=== PATIENT | male | born 1980 ===

== ENCOUNTER 2016-08-05 15:50 | Emergency (ER) | payer BC ==
[2016-08-05 16:14] VITALS: BP 138/72
--- NOTE | 2016-08-05 17:08 | UC ---
Throat Pain/Nasal Agapito HPI - HPI Summary HPI Summary: complaint of left ear pain intermittent headaches mild nasal congestion, intermittent scratchy throats TMJ has been bothering him recently denies fever and cough taking some advil with some relief left leg pain that starts 2 months ago started in the back of his thigh that feels itchy lateral side of his thigh gets painful with movement and driving has active job with lots of walking feels like a deep bruise that won't go away dry rash on his legs sometimes' sees Dr Janis [place] take s advil with relief - History of Current Complaint Chief Complaint: UCLowerExtremity Stated Complaint: LEFT LEG COMPLAINT/SORE THROAT EARS Time Seen by Provider: 08/05/16 17:01 Hx Obtained From: Patient - Allergies/Home Medications Allergies/Adverse Reactions: Allergies Allergy/AdvReac Type Severity Reaction Status Date / Time No Known Allergies Allergy Verified 08/05/16 16:15 PMH/Surg Hx/FS Hx/Imm Hx Previously Healthy: Yes - Surgical History Surgical History: Yes Surgery Procedure, Year, and Place: Left ACL repair - Family History Known Family History: Negative: Cardiac Disease, Hypertension, Diabetes - Social History Occupation: Employed Full-time Lives: With Family Alcohol Use: Weekly Substance Use Type: None Smoking Status (MU): Current Every Day Smoker Type: Smokeless Tobacco Review of Systems Constitutional: Negative Skin: Rash Eyes: Negative ENT: Dental Pain, Ear Ache Respiratory: Negative Cardiovascular: Negative Gastrointestinal: Negative Genitourinary: Negative Motor: Negative Neurovascular: Negative Musculoskeletal: Other: - right leg pain Neurological: Negative Psychological: Negative All Other Systems Reviewed And Are Negative: Yes Physical Exam Triage Information Reviewed: Yes Appearance: No Pain Distress, Well-Nourished Vital Signs: Initial Vital Signs Temp 98.9 F 08/05/16 16:08 Pulse 66 08/05/16 16:08 Resp 16 08/05/16 16:08 BP 138/72 08/05/16 16:08 Pulse Ox 98 08/05/16 16:08 Vital Signs Reviewed: Yes Eyes: Positive: Conjunctiva Clear ENT: Positive: Pharynx normal, TMs normal. Negative: Nasal congestion, Tonsillar swelling, Tonsillar exudate Dental: Positive: Other: - no abscesses or sweeling, no tenderness throughout jaw Neck: Positive: No Lymphadenopathy Respiratory: Positive: Lungs clear, Normal breath sounds, No respiratory distress, No accessory muscle use Cardiovascular: Positive: RRR, No Murmur, Pulses Normal, Brisk Capillary Refill Abdomen Description: Positive: Nontender, Soft Bowel Sounds: Positive: Present Musculoskeletal: Positive: Other: - RLE- non tender throughout musculature, no ecchymosis or rash Neurological: Positive: Alert Psychological Exam: Normal Skin Exam: Normal Throat Pain/Nasal Course/Dx - Course Course Of Treatment: exam completed. no s/s of infection in ears, mouth, dental , most likely ear pain referred from TMJ. leg painappears to be from overuse of muscles -will start flexeril for both issues and have him followup with primary care provider. - Differential Dx/Diagnosis Provider Diagnoses: TMJ, right leg pain Discharge - Discharge Plan Condition: Stable Disposition: HOME Prescriptions: Cyclobenzaprine TAB* [Flexeril 10 MG TAB*] 10 mg PO BEDTIME #10 tab Patient Education Materials: Temporomandibular Disorder (ED), Muscle Strain (ED ) Referrals: Non Staff,Doctor [Medical Doctor] - Marshall Bruce MD [Primary Care Provider] - Additional Instructions: Start flexeril as directed. Do not drink alcohol or drive while taking flexeril. Take ibuprofen for fever or pain. Increase fluids and rest. Please review your discharge instructions. If your symptoms do not improve please call your primary care provider or return to urgent care. Your blood pressure is pre-hypertensive reading. Please contact your primary care provider within 1 day -4 weeks for further evaluation
== END 2016-08-05 17:29 | disposition home or self-care (01) ==
LOC: UCCORT 15:50
DX: M26.609 Unspecified temporomandibular joint disorder, unspecified side (principal); M79.604 Pain in right leg; F17.200 Nicotine dependence, unspecified, uncomplicated
CPT/HCPCS: 99202; G0463